=== PATIENT | female | born 1960 | race African-American/Black ===

== ENCOUNTER 2016-08-22 07:39 | Emergency (ER) | payer OTHER ==
[~2016-08-22] VITALS: Ht 167.6 cm; Wt 95.3 kg
[~2016-08-22 07:39] MED LIST: AMARYL4 M1 PO; CYMBALTA20 M1 PO; DIAZEPAM5 MG PO; DIFLUCAN150 MG PO; DIOVAN80 M1 PO; FLEXERIL 5MG TAB5 MG PO; GABAPENTIN300 MG PO; KEFLEX500 MG PO; LASIX20 MG PO; LEVEMIR FL100 UNIT/1 SC; LIPITOR10 M1 PO; LOTRIMIN CR1 %/30 GM TOP; METFORMIN HCL1000 M1 PO; MOTRIN 600 MG600 MG PO; MOTRIN800 MG PO; NOVOLOG FL100 UNIT/1 SC; NYSTOP100000 U/G TOP; PANTOPRAZOLE SO40 MG PO; PRILOSEC40 MG PO; PROTONIX 40MG T40 MG PO; TRAMADOL50 MG PO; VITAMIN D31000 UNI2 PO; VITAMIN D50000 IU PO; VOLTAREN GEL1% TOP
--- NOTE | 2016-08-22 08:05 | ED CARDIAC/CP/PALPITATIONS ---
History of Present Illness General Chief Complaint: Palpitations Stated Complaint: HEART PALPS Source: patient Exam Limitations: no limitations Vital Signs & Intake/Output Vital Signs & Intake/Output Vital Signs Date Time Temp Pulse Resp B/P Pulse O2 O2 Flow FiO2 Ox Delivery Rate 08/22 1351 98 18 125/72 97 Room Air 08/22 1132 98.6 08/22 1127 119 18 133/87 100 Room Air 08/22 0955 100.3 08/22 0907 100.3 120 16 134/83 97 Room Air 08/22 0836 98 Room Air 08/22 0749 97.0 158 18 116/76 100 Room Air Allergies Coded Allergies: insulin aspart (Mild, 10/11/15) Reconcile Medications Atorvastatin Calcium (Lipitor) 10 MG TABLET 1 TAB PO DAILY CHOLESTEROL ( Reported) Cholecalciferol (Vitamin D3) 1,000 UNIT TABLET 1,000 IU PO DAILY VITAMIN D SUPPLEMET (Reported) Clotrimazole (Lotrimin Cream 30GM) 1 %/30 GM CRM 1 FREEDOM TOP BID tinea infection apply to affected area(s) Diazepam 5 MG TABLET 0.25 TAB PO BIDP PRN ANXIETY (Reported) Diclofenac Sodium (Voltaren) 1 % GEL..GRAM. 1 GM TOP 4 TIMES/DAY PRN LEFT HEEL SPUR (Reported) apply to affected area(s) Duloxetine Hydrochloride (Cymbalta) 20 MG CAP 1 CAP PO DAILY MENTAL HEALTH ( Reported) Gabapentin 300 MG CAPSULE 2 CAP PO TID NEUROPATHY (Reported) Glimepiride 4 MG TABLET 1 TAB PO BID DIABETES (Reported) Insulin Aspart, Recombinant (Novolog Flexpen) 100 UNIT/ML INSULN.PEN DIABETES ( Reported) Insulin Detemir (Levemir Flextouch) 100 UNIT/ML (3 ML) INSULN.PEN 25 UNITS SC QPM DIABETES (Reported) METFORMIN HCL (Metformin) 1,000 MG TABLET 1 TAB PO BID DIABETES (Reported) Nystatin (Nystop) 100,000 UNIT/GRAM POWDER 1 FREEDOM TOP DAILY UNDER BREAST/BUTT CREASE (Reported) Pravastatin Sodium 20 MG TABLET 1 TAB PO DAILY CHOLESTEROL (Reported) Valsartan (Diovan) 80 MG TAB 1 TAB PO DAILY BP (Reported) Triage Note: PT STATES THAT MONDAY SHE WAS ILL WITH FLU LIKE SYMPTOMS, LAST PM SHE STARTED TO FEEL LIKE HER HEART WAS RACING, HR 158 AT TRIAGE. DENIES CP /SOB Triage Nurses Notes Reviewed? yes Onset: Gradual Duration: constant Timing: recent history Quality/Severity: moderate Radiation: no radiation Activities at Onset: none HPI: Patient is a 55-year-old female with past medical history type 1 diabetes, hypertension and hyperlipidemia who presents emergency and that over the weekend on Monday and Monday 3 days ago patient had on Monday 3 episodes of nonbloody nonbilious emesis that resolved then on Monday and Monday patient had loose watery stool diarrhea production and generalized weakness and fatigue however last night patient started to felt a gradual onset of shortness of breath associated with palpitations. Patient is able tolerate by mouth has tactile fevers Denies any headache neck pain neck stiffness chest pain arm pain jaw pain nausea vomiting abdominal plain leg swelling hemoptysis history of DVT or PE. Denies any cough Patient HAS generalized upper back pain since symptoms began (JULI GLOVER) Past History Travel History Traveled to [place] past 21 day No Medical History Any Pertinent Medical History? 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 FATHER (FATHER HAD ANEURYSM ). Hx Contributory? No (JULI GLOVER) Review of Systems Review of Systems Constitutional: Reports: see HPI, fever. EENTM: Reports: no symptoms. Respiratory: Reports: see HPI, short of breath. Denies: cough. Cardiovascular: Reports: see HPI. Denies: chest pain, peripheral edema. GI: Reports: see HPI, nausea. Denies: abdominal pain. Genitourinary: Reports: no symptoms. Musculoskeletal: Reports: see HPI, back pain. Skin: Reports: no symptoms. Neurological/Psychological: Reports: no symptoms. Hematologic/Endocrine: Reports: no symptoms. Immunologic/Allergic: Reports: no symptoms. All Other Systems: Reviewed and Negative (JULI GLOVER) Physical Exam Physical Exam General Appearance: no apparent distress, alert, comfortable Cardiovascular: tachycardia Comments: Well-developed well-nourished person in no acute distress HEENT: Normal EENT exam, extraocular motion intact, no nystagmus. Pupils equally round and reactive to light and accommodation. Nose is atraumatic. External auditory canal and Tympanic membranes clear. Pharynx normal. No swelling or edema. Neck: Supple, no lymphadenopathy, normal range of motion without pain or tenderness Back: Nontender, no CVA tenderness. Cardiovascular no murmurs rubs or gallops, normal JVP Respiratory: Chest nontender. No respiratory distress.breath sounds clear to auscultation bilaterally Abdomen: Soft, nontender nondistended, no appreciable organomegaly. Normal bowel sounds. No ascites Extremity: No edema, no calf tenderness to palpation, normal and equal pulses. Neuro: Alert oriented x3, motor sensory normal, Skin: No appreciable rash on exposed skin, skin is warm and dry. Psych: Mood and affect is normal, memory and judgment is normal. Core Measures ACS in differential dx? No Severe Sepsis Present: No Septic Shock Present: No (JULI GLOVER) Progress Differential Diagnosis: AMI, aortic dissection, atrial fibrillation, cholecystitis, CHF/pulm edema, costochondritis, hyperkalemia, hypovolemia, hyperthyroid, hyperventilation, intracranial hemorrhage, musculoskeletal pain, myocarditis, pancreatitis, pericarditis, pneumonia, pneumothorax, PSVT, pulmonary embolism, PUD/GERD, PVCs/PACs, respiratory failure, rib fracture, sepsis, unstable angina, V-fib/V-Tach, WPW syndrome Plan of Care: Orders Procedure Date/time Status Regular Diet 08/22 L Active Add-on Test (ER Only) 08/22 1200 Active THYROID STIMULATING HORMONE 08/22 0820 Complete THYROXINE 08/22 0820 Complete Telemetry/Utility Bill Complaints Investigator 08/22 0811 Active TROPONIN LEVEL 08/22 0809 Complete LIPASE 08/22 0809 Complete D-DIMER 08/22 0809 Complete COMPREHENSIVE METABOLIC PANEL 08/22 0809 Complete CBC WITHOUT DIFFERENTIAL 08/22 08 Complete AMYLASE 08/22 0809 Complete ACETONE 08/22 0809 Complete RAPID VIRAL INFLUENZA A 08/22 0805 Complete EKG 08/22 0740 Active Laboratory Tests 08/22/16 0820: Anion Gap 13, Estimated GFR > 60, BUN/Creatinine Ratio 20.0, Glucose 247 H, Calcium 9.8, Total Bilirubin 0.5, AST 17, ALT 23, Alkaline Phosphatase 139 H, Troponin I < 0.01, Total Protein 7.0, Albumin 3.7, Globulin 3.3, Albumin/ Globulin Ratio 1.1, Amylase 48, Lipase 81, TSH 10.200 H, Thyroxine (T4) 10.1, D -Dimer 306 H, CBC w Diff NO MAN DIFF REQ, RBC 4.53, MCV 88.7, MCH 29.2, RDW 13.1, MPV 8.6, Gran % 59.0, Lymphocytes % 30.0, Monocytes % 9.2, Eosinophils % 1.5, Basophils % 0.3, Absolute Granulocytes 2.9, Absolute Lymphocytes 1.5, Absolute Monocytes 0.5, Absolute Eosinophils 0.1, Absolute Basophils 0, PUBS MCHC 32.9 L, Acetone Level NEGATIVE Patient currently is in no apparent distress. Telemetry monitored noted to be sinus rhythm at approximately 115-125 bpm. Patient had initial blood work to known to be hyperglycemic troponin was negative EKG noted sinus tachycardia. Patient will receive CT angiogram to rule out pulmonary embolism. 08/22/2016 9:31:12 AM-I reviewed blood work with patient which she is in no apparent distress however will receive Tylenol for noted fever in the emergency room however due to history of present illness and exam findings I suspect that this time the patient patient have tachycardia from viral syndrome 08/22/2016 2:50:47 PM after multiple re-evaluations of the patient she had a negative CT angiogram and no concerns of pulmonary embolism patient had essentially unremarkable blood work however it was noted that patient did have tachycardia that was persistent however after IV fluids were administered patient did have a noted improvement of her heart rate to be 90 bpm. Patient did walk down the emergency room hallway normal steady gait and was asymptomatic Discussed patient with Dr. Huerta who agrees to have patient follow-up and outpatient and I strongly advised patient to call her adjunct latin professor, Dr. Huerta this week and water plant maintenance mechanic Dr. Lyons. Patient noted normal steady gait on discharge and was asymptomatic patient had nontender abdomen and I discussed CT scan results with patient noted thyroid nodule and gave copy TO the patient Discussed disposition plan with Dr. LOGAN who agrees (SAURABH GARCIA,JULI) Diagnostic Imaging: Viewed by Me: Radiology Read, CT Scan. Radiology Impression: no acute abnormality Initial ED EKG: SINUS RHYTHM 100 BPM Comments: PATIENT: SUBHA LOZADA PRESENT AGE: 55 PATIENT ACCOUNT NO: [id number] : 59 LOCATION: [facility] ORDERING PHYSICIAN: JULI GARCIA SERVICE DATE: 08/22/16 EXAM TYPE: CAT - CTA CHEST-PULMONARY EMBOLISM EXAMINATION: CT ANGIOGRAM OF THE CHEST WITH AND WITHOUT CONTRAST (CT PULMONARY ANGIOGRAM FOR PE) CLINICAL INFORMATION: Tachycardia and shortness of breath. COMPARISON: No pertinent prior studies are available for comparison. TECHNIQUE: Prior to contrast administration, noncontrast localization images were obtained. Subsequently, multidetector volumetric imaging was performed from the thoracic inlet to below the diaphragms following the administration of 67 mL Optiray 320 intravenous contrast. No contrast reaction reported Sagittal, coronal, and MIP oblique sagittal reformatted images were obtained on the CT workstation, uploaded to PACS, and reviewed. Total exam dose-length product 456 mGy-cm FINDINGS: QUALITY OF STUDY/CONTRAST BOLUS: Satisfactory. PULMONARY ARTERIES: The pulmonary arterial tree is well-opacified without pulmonary arterial defects are identified to suggest an underlying pulmonary embolism. THORACIC AORTA: No aneurysm or dissection. LUNG: No focal consolidation, nodules or masses. PLEURA: No pleural effusion or pneumothorax. MEDIASTINUM: Normal heart size. No pericardial effusion. No hilar or mediastinal lymphadenopathy. There is asymmetry involving the thyroid gland with a 1.5 cm nodule suspected in the midpole. CHEST WALL/AXILLA: No axillary or internal mammary lymphadenopathy. OSSEOUS STRUCTURES: No acute or suspicious osseous abnormality. UPPER ABDOMEN: Unremarkable. IMPRESSION: 1. No evidence of pulmonary embolism or an acute intrathoracic process. 2. Asymmetric prominence of the right thyroid lobe with questionable 1.5 cm nodule. Ultrasound is recommended to further evaluate. PATIENT: SUBHA LOZADA PRESENT AGE: 55 PATIENT ACCOUNT NO: [id number] : 59 LOCATION: ER ORDERING PHYSICIAN: JULI GARCIA SERVICE DATE: 08/22/16 EXAM TYPE: RAD - XRY-PORTABLE CHEST XRAY EXAMINATION: XR PORTABLE CHEST CLINICAL INFORMATION: Shortness of breath, palpitations. COMPARISON: 09/26/2012. TECHNIQUE: Portable AP view of the chest was obtained. FINDINGS: The cardiomediastinal silhouette is within normal limits. Lung volumes are diminished. The lungs and pleural spaces appear clear. There is no evidence of pneumothorax or pulmonary edema. Included osseous structures appear largely unremarkable. IMPRESSION: Low lung volumes, no evidence of an acute intrathoracic process. (JULI GLOVER) Departure Departure Disposition: HOME OR SELF CARE Condition: Stable Clinical Impression Primary Impression: Viral syndrome Secondary Impressions: Palpitations, Tachycardia Referrals: PATIENT HAS NO PRIMARY CARE DR (PCP/Family) Additional Instructions: As discussed tomorrow please follow-up and call your adjunct latin professor Dr. Huerta for further evaluation treatment. Begin DRINKING PLENTY OF water for hydration. Begin [id number] Tylenol for fevers. If symptoms worsen or if YOU develop a new concerning symptom return to emergency room. Tomorrow please follow up and establish a water plant maintenance mechanic Dr. Lyons for further evaluation treatment. Continue home medications as directed. Please discontinue your metformin for 2 days because you received IV contrast in the emergency room Departure Forms: Customer Survey General Discharge Information (JULI GLOVER) PA/HVAC/R INSTRUCTOR Co-Sign Statement Statement: ED Attending supervision documentation- [] I saw and evaluated the patient. I have also reviewed all the pertinent lab results and diagnostic results. I agree with the findings and the plan of care as documented in the PA's/HVAC/R INSTRUCTOR's documentation. [X] I have reviewed the ED Record and agree with the PA's/HVAC/R INSTRUCTOR's documentation. [] Additions or exceptions (if any) to the PAs/HVAC/R INSTRUCTOR's note and plan are summarized below: [] (JETT LOGAN DO) Critical Care Note Critical Care Note Critical Care Time: non-applicable (JULI GLOVER)
[2016-08-22 08:41] LABS: ABSOLUTE BASOPHIL COUNT 0 /CUMM (0.0-0.2); ABSOLUTE EOSINOPHIL COUNT 0.1 /CUMM (0.0-0.7); ABSOLUTE GRANULOCYTE CT 2.9 /CUMM (1.4-6.5); ABSOLUTE LYMPH COUNT 1.5 /CUMM (1.2-3.4); ABSOLUTE MONOCYTE COUNT 0.5 /CUMM (0.10-0.60); BASOPHIL % 0.3 % (0.0-2.0); EOSINOPHIL % 1.5 % (0-5); HEMATOCRIT 40.2 % (37-47); MEAN CORPUSCULAR HGB 29.2 PG (27.0-31.0); MEAN CORPUSCULAR HGB CONC 32.9 G/DL (33.0-37.0); MEAN CORPUSCULAR VOLUME 88.7 FL (81.0-99.0); MEAN PLATELET VOLUME 8.6 FL (7.4-10.4); PLATELET COUNT 297 /CUMM (130-400); RBC DISTRIBUTION WIDTH 13.1 % (11.5-14.5); RED BLOOD CELL CT 4.53 /CUMM (4.20-5.40)
--- NOTE | 2016-08-22 09:06 | RADIOLOGY REPORT ---
EXAMINATION: XR PORTABLE CHEST CLINICAL INFORMATION: Shortness of breath, palpitations. COMPARISON: 09/26/2012. TECHNIQUE: Portable AP view of the chest was obtained. FINDINGS: The cardiomediastinal silhouette is within normal limits. Lung volumes are diminished. The lungs and pleural spaces appear clear. There is no evidence of pneumothorax or pulmonary edema. Included osseous structures appear largely unremarkable. IMPRESSION: Low lung volumes, no evidence of an acute intrathoracic process.
[2016-08-22] MEDS ORDERED: PRAVASTATIN SOD20 M2 PO (09:53)
[2016-08-22] MEDS ORDERED: GABAPENTIN300 M2 PO (09:55)
[2016-08-22] MEDS ORDERED: DIAZEPAM5 M1 PO (09:55)
--- NOTE | 2016-08-22 11:21 | CT SCAN REPORT ---
EXAMINATION: CT ANGIOGRAM OF THE CHEST WITH AND WITHOUT CONTRAST (CT PULMONARY ANGIOGRAM FOR PE) CLINICAL INFORMATION: Tachycardia and shortness of breath. COMPARISON: No pertinent prior studies are available for comparison. TECHNIQUE: Prior to contrast administration, noncontrast localization images were obtained. Subsequently, multidetector volumetric imaging was performed from the thoracic inlet to below the diaphragms following the administration of 67 mL Optiray 320 intravenous contrast. No contrast reaction reported Sagittal, coronal, and MIP oblique sagittal reformatted images were obtained on the CT workstation, uploaded to PACS, and reviewed. Total exam dose-length product 456 mGy-cm FINDINGS: QUALITY OF STUDY/CONTRAST BOLUS: Satisfactory. PULMONARY ARTERIES: The pulmonary arterial tree is well-opacified without pulmonary arterial defects are identified to suggest an underlying pulmonary embolism. THORACIC AORTA: No aneurysm or dissection. LUNG: No focal consolidation, nodules or masses. PLEURA: No pleural effusion or pneumothorax. MEDIASTINUM: Normal heart size. No pericardial effusion. No hilar or mediastinal lymphadenopathy. There is asymmetry involving the thyroid gland with a 1.5 cm nodule suspected in the midpole. CHEST WALL/AXILLA: No axillary or internal mammary lymphadenopathy. OSSEOUS STRUCTURES: No acute or suspicious osseous abnormality. UPPER ABDOMEN: Unremarkable. IMPRESSION: 1. No evidence of pulmonary embolism or an acute intrathoracic process. 2. Asymmetric prominence of the right thyroid lobe with questionable 1.5 cm nodule. Ultrasound is recommended to further evaluate.
[2016-08-22 13:51] VITALS: BP 125/72
== END 2016-08-22 15:16 ==
LOC: ERH 07:39
PROVIDERS: Physician Assistant
DX: R00.2 Palpitations (principal); B34.9 Viral infection, unspecified; R00.0 Tachycardia, unspecified
CPT/HCPCS: 87804; 87804-59; 93005; 93010; 96360

== ENCOUNTER 2016-10-26 11:14 | Emergency (ER) | payer OTHER ==
[~2016-10-26] VITALS: Ht 167.6 cm; Wt 97.5 kg
[~2016-10-26 11:14] MED LIST changes: +DIAZEPAM5 M1 PO; +GABAPENTIN300 M2 PO; +PRAVASTATIN SOD20 M2 PO
[2016-10-26 11:21] VITALS: BP 131/82
--- NOTE | 2016-10-26 11:50 | ED INFLUENZA/URI COMPLAINT ---
History of Present Illness General Chief Complaint: Upper Respiratory Sx/Fever Stated Complaint: FEVER, BODY ACHE, SORE THROAT Source: patient, old records Exam Limitations: no limitations Vital Signs & Intake/Output Vital Signs & Intake/Output Vital Signs Date Time Temp Pulse Resp B/P Pulse O2 O2 Flow FiO2 Ox Delivery Rate 10/26 1121 96.1 116 20 131/82 98 Room Air Allergies Coded Allergies: insulin aspart (Mild, 10/11/15) Reconcile Medications Albuterol Sulfate (Proventil Hfa) 90 MCG HFA.AER.AD 2 PUF INH Q4 sob Atorvastatin Calcium (Lipitor) 10 MG TABLET 1 TAB PO DAILY CHOLESTEROL ( Reported) Brompheniramine/Pseudoephed/Dm (Bromfed Dm Cough Syrup) 2 MG-30 MG-10 MG/5 ML SYRUP 5-10 ML PO Q4-6 PRN PRN cough Cholecalciferol (Vitamin D3) 1,000 UNIT TABLET 1,000 IU PO DAILY VITAMIN D SUPPLEMET (Reported) Clotrimazole (Lotrimin Cream 30GM) 1 %/30 GM CRM 1 FREEDOM TOP BID tinea infection apply to affected area(s) Diazepam 5 MG TABLET 0.25 TAB PO BIDP PRN ANXIETY (Reported) Diclofenac Sodium (Voltaren) 1 % GEL..GRAM. 1 GM TOP 4 TIMES/DAY PRN LEFT HEEL SPUR (Reported) apply to affected area(s) Doxycycline Hyclate 100 MG TABLET 1 TAB PO BID sinusitis Duloxetine Hydrochloride (Cymbalta) 20 MG CAP 1 CAP PO DAILY MENTAL HEALTH ( Reported) Gabapentin 300 MG CAPSULE 2 CAP PO TID NEUROPATHY (Reported) Glimepiride 4 MG TABLET 1 TAB PO BID DIABETES (Reported) Insulin Aspart, Recombinant (Novolog Flexpen) 100 UNIT/ML INSULN.PEN DIABETES ( Reported) Insulin Detemir (Levemir Flextouch) 100 UNIT/ML (3 ML) INSULN.PEN 25 UNITS SC QPM DIABETES (Reported) METFORMIN HCL (Metformin) 1,000 MG TABLET 1 TAB PO BID DIABETES (Reported) Nystatin (Nystop) 100,000 UNIT/GRAM POWDER 1 FREEDOM TOP DAILY UNDER BREAST/BUTT CREASE (Reported) Pravastatin Sodium 20 MG TABLET 1 TAB PO DAILY CHOLESTEROL (Reported) Valsartan (Diovan) 80 MG TAB 1 TAB PO DAILY BP (Reported) Triage Note: PT TO ED C/O BODY ACHES SINCE MONDAY. C/O DIARRHEA, DENIES N/V. DENIES FEVERS AT HOME, AFEBRILE NOW. Triage Nurses Notes Reviewed? yes Onset: Abrupt Duration: day(s): (4-5), constant Timing: recent history Severity: mild, moderate No Modifying Factors: none HPI: 56-year-old female comes into emergency room with complaints of cough, mucus production, fever or chills, bodyaches, sinus tenderness. Symptoms of a going on for the past 4-5 days. Couple episodes of associated diarrhea. was sick with similar symptoms. Denies any other associated symptoms at this time. (NELLI ALMAGUER) Past History Travel History Traveled to [place] past 21 day No Medical History Any Pertinent Medical History? 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 FATHER (FATHER HAD ANEURYSM ). Hx Contributory? No (NELLI ALMAGUER) Review of Systems Review of Systems Constitutional: Reports: see HPI. EENTM: Reports: see HPI. Respiratory: Reports: see HPI. Cardiovascular: Reports: no symptoms. GI: Reports: see HPI. Genitourinary: Reports: no symptoms. Musculoskeletal: Reports: no symptoms. Skin: Reports: no symptoms. Neurological/Psychological: Reports: no symptoms. Hematologic/Endocrine: Reports: no symptoms. Immunologic/Allergic: Reports: no symptoms. All Other Systems: Reviewed and Negative (NELLI ALMAGUER) Physical Exam Physical Exam General Appearance: well developed/nourished, no apparent distress, alert Head: atraumatic, normal appearance Eyes: Bilateral: normal appearance. Ears, Nose, Throat: normal ENT inspection, moist mucous membrane, hearing grossly normal, Tympanic normal Neck: normal inspection, full range of motion Respiratory: normal breath sounds, no respiratory distress Cardiovascular: regular rate/rhythm Gastrointestinal: soft Back: normal inspection Extremities: normal inspection, normal range of motion, no edema Neurologic/Psych: awake, alert, oriented x 3, normal gait, normal mood/affect Skin: intact, normal color Core Measures Severe Sepsis Present: No Septic Shock Present: No (NELLI ALMAGUER) Progress Differential Diagnosis: influenza, meningitis, neutropenia, otitis, pneumonia, pharyngitis, sinusitis Plan of Care: Orders Procedure Date/time Status RAPID VIRAL INFLUENZA A 10/26 1120 Complete Microbiology 10/26 1126 NASOPHARYN: Influenza Virus A & B Rapid Smear - COMP Diagnostic Imaging: Viewed by Me: Radiology Read. Discussed w/RAD: Radiology Read. Radiology Impression: SERVICE DATE: 10/26/16 EXAM TYPE: RAD - XRY-CHEST XRAY, PA AND LATERAL EXAMINATION: XR CHEST CLINICAL INFORMATION: Cough. Evaluate for pneumonia. COMPARISON: 08/22/2016 TECHNIQUE: 2 views of the chest were obtained. FINDINGS: Lungs are symmetrically expanded and clear. No focal consolidation, interstitial infiltrate or pleural effusion. Cardiac silhouette is normal in size. The mediastinal and hilar contours are normal. Multilevel degenerative disc space narrowing of the thoracic spine. IMPRESSION: No evidence of pneumonia; no acute cardiopulmonary abnormality compared to 08/22/2016. DICTATED BY: JARETT JEAN MD DATE/TIME DICTATED:10/26/161220 VOLLEYBALL REFEREE:CALEB DATE/TIME TRANSCRIBED:10/26/161220 Initial ED EKG: none (NELLI ALMAGUER) Departure Departure Disposition: HOME OR SELF CARE Condition: Stable Clinical Impression Primary Impression: URI (upper respiratory infection) Referrals: LUCAS RAMON MD (PCP/Family) Additional Instructions: Take doxycycline, Bromfed, and albuterol as prescribed. Follow-up with primary care doctor. Return if any other concerns. Please go over all results of today's visit with your primary care doctor. Contact your primary care doctor to let them know you were here in the emergency room. There may be nonspecific findings which may not be related to your visit today here in the emergency room but may require further evaluation and chronic monitoring by your primary care doctor. If you had a laceration today the chance of foreign body always remains. You should follow-up with your primary care doctor for recheck in 3-5 days for a wound check. If you had an x-ray done there is a chance that a fracture could have been missed on initial read and you should follow-up with your primary care doctor for repeat x-rays if symptoms persist. If your blood pressure was elevated here in the emergency room please have rechecked by her primary care doctor within the next 48 hours by your primary care doctor. If you were prescribed a narcotic here in the emergency room or any type of controlled substances you're not allowed to drive while taking this medication or operate any type of heavy machinery. Narcotics can make you feel lightheaded dizziness nausea and can cause constipation. You may need to package pick up a stool softener. Thank you for choosing [facility] emergency room. Please return to the emergency room immediately if you have any other concerns worsening of symptoms. Departure Forms: Customer Survey General Discharge Information Prescriptions: Current Visit Scripts Doxycycline Hyclate 1 TAB PO BID #14 TAB Brompheniramine/Pseudoephed/Dm (Bromfed Dm Cough Syrup) 5-10 ML PO Q4-6 PRN PRN cough #120 ML Albuterol Sulfate (Proventil Hfa) 2 PUF INH Q4 #1 INHAL Comments 10/26/2016 12:55:47 PM Patient clinically looks well. Nontoxic-appearing. In no apparent distress. Follow-up with primary care doctor. Patient does not sound tachycardic while listening on exam. Symptoms are very consistent with viral illness. Return if any other concerns. Patient understands and agrees with plan of care. (CLARI GARCIA,NELLI) PA/MUFFLE WORKER Co-Sign Statement Statement: ED Attending supervision documentation- [] I saw and evaluated the patient. I have also reviewed all the pertinent lab results and diagnostic results. I agree with the findings and the plan of care as documented in the PA's/MUFFLE WORKER's documentation. x I have reviewed the ED Record and agree with the PA's/MUFFLE WORKER's documentation. [] Additions or exceptions (if any) to the PAs/MUFFLE WORKER's note and plan are summarized below: [] (JAYCEE STRINGER,CHANCE)
--- NOTE | 2016-10-26 12:26 | RADIOLOGY REPORT ---
EXAMINATION: XR CHEST CLINICAL INFORMATION: Cough. Evaluate for pneumonia. COMPARISON: 08/22/2016 TECHNIQUE: 2 views of the chest were obtained. FINDINGS: Lungs are symmetrically expanded and clear. No focal consolidation, interstitial infiltrate or pleural effusion. Cardiac silhouette is normal in size. The mediastinal and hilar contours are normal. Multilevel degenerative disc space narrowing of the thoracic spine. IMPRESSION: No evidence of pneumonia; no acute cardiopulmonary abnormality compared to 08/22/2016.
[2016-10-26] MEDS ORDERED: BROMFED DM COU118 M1 PO (12:41)
[2016-10-26] MEDS ORDERED: DOXYCYCLINE HY100 M4 PO (12:41)
[2016-10-26] MEDS ORDERED: PROVENTIL HFA6.7 GM INH (12:41)
== END 2016-10-26 12:51 ==
LOC: ERH 11:14
DX: J06.9 Acute upper respiratory infection, unspecified (principal)
CPT/HCPCS: 87804; 87804-59

== ENCOUNTER 2016-11-15 12:03 | Emergency (ER) | payer OTHER ==
[~2016-11-15] VITALS: Ht 167.6 cm; Wt 95.3 kg
[~2016-11-15 12:03] MED LIST changes: +BROMFED DM COU118 M1 PO; +DOXYCYCLINE HY100 M4 PO; +PROVENTIL HFA6.7 GM INH
[2016-11-15 12:07] VITALS: BP 142/90
--- NOTE | 2016-11-15 12:56 | ED THROAT/DENTAL COMPLAINT ---
History of Present Illness General Chief Complaint: Sore Throat, Dental Pain Stated Complaint: SORE THROAT Source: patient Exam Limitations: no limitations Vital Signs & Intake/Output Vital Signs & Intake/Output Vital Signs Date Time Temp Pulse Resp B/P B/P Pulse O2 O2 Flow FiO2 Mean Ox Delivery Rate 11/15 1207 97.3 78 20 142/90 98 Room Air Allergies Coded Allergies: insulin aspart (Mild, 10/11/15) Reconcile Medications Albuterol Sulfate (Proventil Hfa) 90 MCG HFA.AER.AD 2 PUF INH Q4 sob Atorvastatin Calcium (Lipitor) 10 MG TABLET 1 TAB PO DAILY CHOLESTEROL ( Reported) Cholecalciferol (Vitamin D3) 1,000 UNIT TABLET 1 TAB PO DAILY SUPPLEMENT ( Reported) Diazepam 5 MG TABLET 0.25 TAB PO BIDP PRN ANXIETY (Reported) Duloxetine Hydrochloride (Cymbalta) 20 MG CAPSULE.DR 1 CAP PO DAILY MENTAL HEALTH (Reported) Gabapentin 300 MG CAPSULE 2 CAP PO TID NEUROPATHY (Reported) Glimepiride (Amaryl) 4 MG TABLET 1 TAB PO BID DIABETES (Reported) Ibuprofen 600 MG TABLET 1 TAB PO TID pain with food Insulin Aspart, Recombinant (Novolog Flexpen) (Unknown Strength) INSULN.PEN ( Unknown Dose) SC SEE SLIDING SCALE DM (Reported) Insulin Detemir (Levemir Flextouch) 100 UNIT/ML (3 ML) INSULN.PEN 25 U SC QPM DIABETES (Reported) Metformin HCl 1,000 MG TABLET 1 TAB PO BID DIABETES (Reported) Pravastatin Sodium 20 MG TABLET 1 TAB PO DAILY CHOLESTEROL (Reported) Valsartan (Diovan) 80 MG TABLET 1 TAB PO DAILY BP (Reported) Triage Note: PT TO ED C/O SORE THROAT SINCE WAKING THIS AM. STATES GRAND DAUGHTER HAD STREP LAST WEEK. Triage Nurses Notes Reviewed? yes Onset: Abrupt Duration: day(s): (few), constant, continues in ED Timing: recent history Injury Environment: home No Modifying Factors: none HPI: 56-year-old female comes into emergency room for further evaluation of sore throat for the past few days. Symptoms in the going on for the past few days. Patient reports is difficult to clear mucus. Denies any fever or vomiting. Denies any sinus pressure. Patient was seen here recently for upper her story symptoms. Denies any other associated symptoms. Past History Travel History Traveled to [place] past 21 day No Medical History Any Pertinent Medical History? 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 FATHER (FATHER HAD ANEURYSM ). Hx Contributory? No Review of Systems Review of Systems Constitutional: Reports: see HPI. EENTM: Reports: see HPI. Respiratory: Reports: no symptoms. Cardiovascular: Reports: no symptoms. GI: Reports: no symptoms. Genitourinary: Reports: no symptoms. Musculoskeletal: Reports: no symptoms. Skin: Reports: no symptoms. Neurological/Psychological: Reports: no symptoms. Hematologic/Endocrine: Reports: no symptoms. Immunologic/Allergic: Reports: no symptoms. All Other Systems: Reviewed and Negative Physical Exam Physical Exam General Appearance: well developed/nourished, no apparent distress, alert Head: atraumatic, normal appearance Eyes: Bilateral: normal appearance. Nose: normal inspection Mouth/Throat: pharyngeal erythema Neck: normal inspection, supple, full range of motion Cardiovascular/Respiratory: normal breath sounds, regular rate/rhythm, no respiratory distress Back: normal inspection Neurologic/Psych: awake, alert, oriented x 3, normal gait Skin: intact, normal color Core Measures ACS in differential dx? No Severe Sepsis Present: No Septic Shock Present: No Progress Differential Diagnosis: aspirated tooth, carious tooth, epiglottitis, Ludwigs angina, meningitis, odontogenic abscess, mikayla-tonsillar abscess, pharyngeal for. body, stomatitis/gingivitis, strep pharyngitis, tooth fracture, upper respiratory infection Plan of Care: Orders Procedure Date/time Status THROAT CULTURE W/QUICK STREP 11/15 1210 Active Comments: 11/15/2016 1:25:19 PM Patient clinically looks well. Nontoxic-appearing. In no apparent distress. Negative strep. No need for antibiotics. Follow-up with primary care doctor. Symptoms more viral in nature. Departure Departure Disposition: HOME OR SELF CARE Condition: Stable Clinical Impression Primary Impression: Upper respiratory infection Referrals: LUCAS RAMON MD (PCP/Family) Additional Instructions: agronomy supervisor Mucinex D. Take ibuprofen as prescribed. Gargle with warm salt water. Return if any other concerns. Follow-up with your primary care doctor. Please go over all results of today's visit with your primary care doctor. Contact your primary care doctor to let them know you were here in the emergency room. There may be nonspecific findings which may not be related to your visit today here in the emergency room but may require further evaluation and chronic monitoring by your primary care doctor. If you had a laceration today the chance of foreign body always remains. You should follow-up with your primary care doctor for recheck in 3-5 days for a wound check. If you had an x-ray done there is a chance that a fracture could have been missed on initial read and you should follow-up with your primary care doctor for repeat x-rays if symptoms persist. If your blood pressure was elevated here in the emergency room please have rechecked by her primary care doctor within the next 48 hours by your primary care doctor. If you were prescribed a narcotic here in the emergency room or any type of controlled substances you're not allowed to drive while taking this medication or operate any type of heavy machinery. Narcotics can make you feel lightheaded dizziness nausea and can cause constipation. You may need to cotton picker a stool softener. Thank you for choosing [facility] emergency room. Please return to the emergency room immediately if you have any other concerns worsening of symptoms. Departure Forms: Customer Survey General Discharge Information Prescriptions: Current Visit Scripts Ibuprofen 1 TAB PO TID #15 TAB with food
[2016-11-15] MEDS ORDERED: IBUPROFEN600 M1 PO (12:57)
== END 2016-11-15 13:27 ==
LOC: ERH 12:03
DX: J06.9 Acute upper respiratory infection, unspecified (principal)

== ENCOUNTER 2017-10-27 07:45 | Emergency (ER) | payer OTHER ==
[~2017-10-27 07:45] MED LIST changes: +AUGMENTIN 500-1 EACH PO; +BACTROBAN15 GM TOP; +CIPRODEX OTIC7.5 ML OT; +DIFLUCAN150 M1 PO; +IBUPROFEN600 M1 PO; +LORADAMED10 MG PO; +MOBIC15 M1 PO; +PROAIR HFA8.5 GM INH; +VITAMIN D2000 UNI1 PO
--- NOTE | 2017-10-27 08:18 | ED CARDIAC/CP/PALPITATIONS ---
History of Present Illness General Chief Complaint: Chest Pain Stated Complaint: CHEST PAIN/DISCOMFORT,PAIN IN RIGHT LEG Source: patient, old records Exam Limitations: no limitations Vital Signs & Intake/Output Vital Signs & Intake/Output Vital Signs Date Time Temp Pulse Resp B/P B/P Pulse O2 O2 Flow FiO2 Mean Ox Delivery Rate 10/27 1456 97.9 84 18 148/70 99 Room Air 10/27 1152 86 18 135/78 100 10/27 0931 98.8 118 20 161/92 100 10/27 0809 100 Room Air 10/27 0802 98.1 120 16 168/100 100 Room Air Allergies Coded Allergies: insulin aspart (Severe, HIVES 06/09/17) Reconcile Medications Albuterol Sulfate (Proair Hfa) 90 MCG HFA.AER.AD 2 PUF INH PRN RESP. ( Reported) Cholecalciferol (Vitamin D3) (Vitamin D) 2,000 UNIT TABLET 1 TAB PO DAILY SUPPLEMENT (Reported) Duloxetine Hydrochloride (Cymbalta) 20 MG CAPSULE.DR 1 CAP PO DAILY MENTAL HEALTH (Reported) Gabapentin 300 MG CAPSULE 2 CAP PO TID NEUROPATHY (Reported) Insulin Aspart (Novolog) (Unknown Strength) CARTRIDGE (Unknown Dose) SC DAILY DIABETES (Reported) Loratadine (Loradamed) 10 MG TABLET 1 TAB PO DAILY HIVES FROM INSULIN ( Reported) Metformin HCl 1,000 MG TABLET 1 TAB PO BID DIABETES (Reported) Oxycodone HCl/Acetaminophen (Percocet 5-325 MG Tablet) 5 MG-325 MG TABLET 1 TAB PO BID PRN pain Pravastatin Sodium 20 MG TABLET 1 TAB PO DAILY CHOLESTEROL (Reported) Valsartan (Diovan) 80 MG TABLET 1 TAB PO DAILY BP (Reported) Triage Note: PT TO ED C/O CHEST DISCOMFORT SINCE MONDAY FOR A FEW HOURS IN THE CENTER OF HER CHEST THAT FELT ACHY AND THEN WENT AWAY. PT REPORTS THAT THE PAIN CAME BACK LAST NIGHT AND FELT A STRANGE FEELING TO HER CHEST ALMOST LIKE PALPITATIONS THAT PERSISTED ALL NIGHT LONG AND STILL FEELS LIKE IT IS GOING ON NOW. CURRENTLY PT HAS NO PAINS IN HER CHEST. CURRENT HR ON CM IS 120. DENIES ANY DIFFICULTY BREATHING. Triage Nurses Notes Reviewed? yes Onset: Abrupt Duration: minute(s):, constant, continues in ED, waxing and waning Quality/Severity: RAPID HEART RATE Location: substernal Radiation: no radiation Activities at Onset: rest HPI: Patient presents for evaluation of heart palpitations that began upon awakening this morning. Patient states that she first began experiencing symptoms on Monday at which point she had a two-hour episode of chest discomfort substernally. The discomfort felt like a sharp achy pain. That resolved. She began having heart palpitations last night consisting of a rapid heart rate. Symptoms continue this morning and have been constant since onset yesterday. Patient denies any associated dyspnea or chest pain (patient has repeatedly denied any unusual sensation pain or discomfort in her chest aside from the palpitations). She has just had an insulin pump placed for her insulin- dependent diabetes. In addition to the above she is also experiencing a diffuse right leg pain and was evaluated for leg pains recently in the emergency department with an unremarkable workup. 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 Past History Travel History Traveled to [place] past 21 day No Medical History Any Pertinent Medical History? see below for history Neurological: SICK PERSON SYNDROME EENT: NONE Cardiovascular: hypertension, hyperlipidemia Respiratory: NONE Gastrointestinal: GERD Hepatic: NONE Renal: NONE Musculoskeletal: falls, HX OSTEOMYELITIS R FOOT BONE SPURT TO L HEEL BONE STIFF MAN SYNDROME Psychiatric: NONE Endocrine: diabetes Blood Disorders: NONE Cancer(s): NONE PARK NATURALIST/Reproductive: NONE Other Medical Hx: Type 1 diabetes mellitus Strube heel spur History of MRSA: No History of VRE: No History of CDIFF: No Tetanus Vaccine: 05/26/13 Surgical History Surgical History: , hysterectomy Psychosocial History Who do you live with Spouse Services at Home None What is your primary language Icelandic Tobacco Use: Never used Family History Family History, If Any: MOTHER (MOTHER HAD COLON CANCER). FATHER (FATHER HAD ANEURYSM ). Hx Contributory? No Review of Systems Review of Systems Constitutional: Reports: no symptoms. EENTM: Reports: no symptoms. Respiratory: Reports: no symptoms. Cardiovascular: Reports: see HPI. GI: Reports: no symptoms. Genitourinary: Reports: no symptoms. Musculoskeletal: Reports: no symptoms. Skin: Reports: no symptoms. Neurological/Psychological: Reports: no symptoms. Hematologic/Endocrine: Reports: no symptoms. Immunologic/Allergic: Reports: no symptoms. All Other Systems: Reviewed and Negative Physical Exam Physical Exam Cardiovascular: SEE BELOW Comments: Gen.: Well-nourished, well-developed, no acute respiratory distress. Head: Normocephalic, atraumatic. Eyes: Normal inspection bilaterally Ears: Normal inspection bilaterally Nose: Normal inspection Throat/mouth : Moist mucosa Neck: Supple, full range of motion, no goiter Heart: Regular rate and rhythm, no murmurs rubs or gallops Lungs: Clear to auscultation bilaterally with normal air entry Chest: Nontender Back: Normal range of motion Abdomen: Soft, nontender, nondistended, normal bowel sounds Extremities: Normal range of motion grossly, equal radial pulses, no cyanosis clubbing or edema Neurologic: Cranial nerves grossly intact, speech is clear Skin: warm and dry Psychiatric: Calm, cooperative, no apparent delusions or hallucinations Core Measures ACS in differential dx? No CVA/TIA Diagnosis No Sepsis Present: No Sepsis Focused Exam Completed? No Progress Differential Diagnosis: hyperkalemia, hypovolemia Plan of Care: Orders Procedure Date/time Status Consistent Carbohydrate 1 10/27 D Active TROPONIN LEVEL 10/27 1148 Active TROPONIN LEVEL 10/27 1138 Complete FingerStick- Glucose 10/27 1047 Active EKG 10/27 1045 Active Telemetry/Broomcorn Scraper 10/27 0813 Active THYROID STIMULATING HORMONE 10/27 0813 Complete TROPONIN LEVEL 10/27 0813 Complete MAGNESIUM 10/27 0813 Complete CBC WITHOUT DIFFERENTIAL 10/27 0813 Complete CALCIUM 10/27 0813 Complete BASIC METABOLIC PANEL 10/27 0813 Complete EKG 10/27 0747 Active Laboratory Tests 10/27/17 1151: Troponin I 0.02 10/27/17 0820: Anion Gap 10, Estimated GFR > 60, BUN/Creatinine Ratio 23.3, Glucose 402 H, Calcium 9.8, Magnesium 1.5 L, Troponin I 0.02, TSH 6.240 H, CBC w Diff NO MAN DIFF REQ, RBC 4.11 L, MCV 90.6, MCH 29.8, MCHC 32.9 L, RDW 13.5, MPV 8.4, Gran % 67.3, Lymphocytes % 23.6, Monocytes % 7.5, Eosinophils % 1.1, Basophils % 0.5, Absolute Granulocytes 4.4, Absolute Lymphocytes 1.5, Absolute Monocytes 0.5, Absolute Eosinophils 0.1, Absolute Basophils 0 Diagnostic Imaging: Discussed w/RAD: Radiology Read, Ultrasound. Radiology Impression: PATIENT: SUBHA LOZADA PRESENT AGE: 57 PATIENT ACCOUNT NO: [id number] : 58 LOCATION: ER ORDERING PHYSICIAN: Jean-Paul Montenegro MD SERVICE DATE: 10/27/17 EXAM TYPE : US - US-UNILATERAL VENOUS DOPPLER EXAMINATION: US TRIPLEX LOWER EXTREMITY, RIGHT CLINICAL INFORMATION: This is a 57-year-old female with right lower 70 pain. Possible deep vein thrombosis. COMPARISON: None TECHNIQUE: Color-flow triplex imaging with spectral analysis and compression Doppler were performed on the lower extremity. FINDINGS: Respiratory variation, normal compression and augmented flow are noted throughout the lower extremity. The visualized common femoral vein, superficial femoral vein, profunda femoral vein, popliteal vein and midcalf peroneal and posterior tibial venous segments show no evidence of deep venous thrombosis. There is no Kaur's cyst. IMPRESSION: Normal triplex scan without evidence of deep venous thrombosis involving the lower extremity. DICTATED BY: Jaskaran Keenan MD DATE/TIME DICTATED:10/27/171254 DIAMOND SIZER AND GRADER:ESTRADA DATE/TIME TRANSCRIBED:10/27/171254 CONFIDENTIAL, DO NOT COPY WITHOUT APPROPRIATE AUTHORIZATION. <Electronically signed in Other Vendor System> SIGNED BY: Jaskaran Keenan MD 10/27/171258 CXR Impression: PATIENT: SUBHA LOZADA PRESENT AGE: 57 PATIENT ACCOUNT NO: [id number] : 58 LOCATION: [facility] ORDERING PHYSICIAN: Jean-Paul Montenegro MD SERVICE DATE: 10/27/17 EXAM TYPE : RAD - XRY-PORTABLE CHEST XRAY EXAMINATION: XR PORTABLE CHEST CLINICAL INFORMATION: Palpitations COMPARISON: 03/22/2017 TECHNIQUE: Portable frontal view of the chest was obtained. FINDINGS: The lungs are mildly hypoinflated and appear clear without focal consolidation. No evidence of pneumothorax, pleural effusion, or pulmonary edema. The cardiomediastinal contour is unremarkable. No acute osseous findings are seen. IMPRESSION: No acute cardiopulmonary findings. DICTATED BY: Yogi Pate MD DATE/TIME DICTATED:10/27/17839 DIAMOND SIZER AND GRADER:CALEB DATE/TIME TRANSCRIBED:10/27/17839 CONFIDENTIAL, DO NOT COPY WITHOUT APPROPRIATE AUTHORIZATION. <Electronically signed in Other Vendor System> SIGNED BY: Yogi Pate MD 04/06/18 0845 Initial ED EKG: NSR, rate (119), QUESTIONABLE st SEGMENT ELEVATIONS IN THE INFERIOR LEADS AND LATERALLY. tHESE ARE NEW COMPARED WITH AN ekg FROM 2016 (HEART RATE NORMAL ON PRIOR). Comments: Patient has repeatedly denied chest discomfort or chest pain. I feel this makes ST segment elevation MO unlikely despite her history of diabetes. Since the patient states that her blood glucose levels have been fluctuating I will bolus with IV fluids and repeat EKG WHEN heart rate is improved. 10/27/2017 10:47:05 AM patient's heart rate is now in the upper 80s. Repeat EKG has been ordered. 10/27/2017 11:48:24 AM repeat EKG shows no ST segment elevations inferolaterally. Repeat troponin ordered. 10/27/2017 3:37:07 PM repeat troponin is normal. Patient found sleeping upon my return to the room. I have updated Subha on test results and she is eager to go home. Departure Departure Disposition: HOME OR SELF CARE Condition: Stable Clinical Impression Primary Impression: Dehydration Secondary Impressions: Heart palpitations Referrals: Luis Alberto Dumont MD (PCP/Family) Additional Instructions: Maintained a good fluid intake. Monitor blood sugar levels before each meal and at bedtime and record these for review by your high speed operator. Strict diabetic diet. Follow-up with your high speed operator on Monday. Notify your primary care doctor this emergency department visit and treatment plan. Return if any concerns or sudden worsening. Please note that there might be incidental findings in your evaluation that are unrelated to the current emergency department visit. Please notify your primary care doctor about this emergency department visit in order to obtain and review all of the testing performed so that these incidental findings can be monitored as needed. If you had an x-ray performed, please understand that some fractures may not be seen on the initial set of x-rays. If your symptoms persist you might need a repeat set of x-rays to check for such a fracture. If you had a laceration evaluated, please understand that foreign bodies such as glass or wood may not be visible to the naked eye or on plain x-rays. If the wound becomes red, swollen, increasingly more painful or if there is any drainage from the wound, please have it reevaluated by a physician for the possibility of a retained foreign body. If you're unable to follow up as outlined in the discharge instructions please return to the emergency department. Thank you for choosing the [facility] Emergency Department for your care. It was a pleasure to serve you today. Jean-Paul Montenegro M.D. [facility] Departure Forms: Customer Survey General Discharge Information Critical Care Note Critical Care Note Critical Care Time: 30-74 min ED Attending Observation Initial Observation Note: I have seen and personally examined SUBHA LOZADA on 10/27/17 at 1047. I agree with the current emergency department documentation. The disposition (admission or discharge) is uncertain at this time, she needs a period of observation for the following reason(s): The ED Nurse caring for this patient has been personally informed as to what the patient is being observed for.
[2017-10-27 08:35] LABS: ABSOLUTE BASOPHIL COUNT 0 /CUMM (0.0-0.2); ABSOLUTE EOSINOPHIL COUNT 0.1 /CUMM (0.0-0.7); ABSOLUTE GRANULOCYTE CT 4.4 /CUMM (1.4-6.5); ABSOLUTE LYMPH COUNT 1.5 /CUMM (1.2-3.4); ABSOLUTE MONOCYTE COUNT 0.5 /CUMM (0.10-0.60); BASOPHIL % 0.5 % (0.0-2.0); EOSINOPHIL % 1.1 % (0-5); GRANULOCYTE % 67.3 % (42.2-75.2); HEMATOCRIT 37.3 % (37-47); MEAN CORPUSCULAR HGB 29.8 PG (27.0-31.0); MEAN CORPUSCULAR HGB CONC 32.9 G/DL (33.0-37.0); MEAN CORPUSCULAR VOLUME 90.6 FL (81.0-99.0); MEAN PLATELET VOLUME 8.4 FL (7.4-10.4); PLATELET COUNT 326 /CUMM (130-400); RBC DISTRIBUTION WIDTH 13.5 % (11.5-14.5); RED BLOOD CELL CT 4.11 /CUMM (4.20-5.40); WHITE BLOOD CELL COUNT 6.6 /CUMM (4.8-10.8)
--- NOTE | 2017-10-27 08:45 | RADIOLOGY REPORT ---
EXAMINATION: XR PORTABLE CHEST CLINICAL INFORMATION: Palpitations COMPARISON: 03/22/2017 TECHNIQUE: Portable frontal view of the chest was obtained. FINDINGS: The lungs are mildly hypoinflated and appear clear without focal consolidation. No evidence of pneumothorax, pleural effusion, or pulmonary edema. The cardiomediastinal contour is unremarkable. No acute osseous findings are seen. IMPRESSION: No acute cardiopulmonary findings.
[2017-10-27] MEDS ORDERED: NOVOLOG100 UNIT/1 SC (09:03)
--- NOTE | 2017-10-27 12:59 | ULTRASOUND REPORT ---
EXAMINATION: US TRIPLEX LOWER EXTREMITY, RIGHT CLINICAL INFORMATION: This is a 57-year-old female with right lower 70 pain. Possible deep vein thrombosis. COMPARISON: None TECHNIQUE: Color-flow triplex imaging with spectral analysis and compression Doppler were performed on the lower extremity. FINDINGS: Respiratory variation, normal compression and augmented flow are noted throughout the lower extremity. The visualized common femoral vein, superficial femoral vein, profunda femoral vein, popliteal vein and midcalf peroneal and posterior tibial venous segments show no evidence of deep venous thrombosis. There is no Kaur's cyst. IMPRESSION: Normal triplex scan without evidence of deep venous thrombosis involving the lower extremity.
[2017-10-27 14:56] VITALS: BP 148/70
== END 2017-10-27 15:52 ==
LOC: ERH 07:45
PROVIDERS: Emergency Medicine
DX: E86.0 Dehydration (principal); R00.2 Palpitations; R07.89 Other chest pain
CPT/HCPCS: 71045; 93005; 93010

== ENCOUNTER 2017-10-29 12:35 | Emergency (ER) | payer OTHER ==
[~2017-10-29 12:35] MED LIST changes: +NOVOLOG100 UNIT/1 SC
--- NOTE | 2017-10-29 14:07 | ED UPPER/LOWER EXTREMITY COMPL ---
History of Present Illness General Chief Complaint: Lower Extremity Problems Stated Complaint: "CAN'T MOVE R LEG" Source: patient, family Exam Limitations: no limitations Vital Signs & Intake/Output Vital Signs & Intake/Output Vital Signs Date Time Temp Pulse Resp B/P B/P Pulse O2 O2 Flow FiO2 Mean Ox Delivery Rate 10/29 1444 97.8 80 18 157/76 99 Room Air 10/29 1239 96.4 97 18 149/85 98 Room Air Room Air Allergies Coded Allergies: insulin aspart (Severe, HIVES 06/09/17) Reconcile Medications Albuterol Sulfate (Proair Hfa) 90 MCG HFA.AER.AD 2 PUF INH PRN RESP. ( Reported) Cholecalciferol (Vitamin D3) (Vitamin D) 2,000 UNIT TABLET 1 TAB PO DAILY SUPPLEMENT (Reported) Duloxetine Hydrochloride (Cymbalta) 20 MG CAPSULE.DR 1 CAP PO DAILY MENTAL HEALTH (Reported) Gabapentin 300 MG CAPSULE 2 CAP PO TID NEUROPATHY (Reported) Insulin Aspart (Novolog) (Unknown Strength) CARTRIDGE (Unknown Dose) SC DAILY DIABETES (Reported) Loratadine (Loradamed) 10 MG TABLET 1 TAB PO DAILY HIVES FROM INSULIN ( Reported) Metformin HCl 1,000 MG TABLET 1 TAB PO BID DIABETES (Reported) Oxycodone HCl/Acetaminophen (Percocet 5-325 MG Tablet) 5 MG-325 MG TABLET 1 TAB PO BID PRN pain Pravastatin Sodium 20 MG TABLET 1 TAB PO DAILY CHOLESTEROL (Reported) Valsartan (Diovan) 80 MG TABLET 1 TAB PO DAILY BP (Reported) Triage Note: TRIAGE: 57 Y/O FEMALE PRESENTS WITH FAMILY C/O RIGHT LEG PAIN SINCE THIS MORNING. UNABLE TO REMAIN PAIN FREE IN TRIAGE. Triage Nurses Notes Reviewed? yes Onset: Abrupt Duration: day(s): (2), constant Timing: recent history Severity: moderate Severity Numbers: 6 Pain/Injury Location: Right: Leg, Knee. Modifying Factors: Worsens With: movement. Associated Symptoms: none HPI: 57-year-old female history of type 1 diabetes, "stiff person syndrome" presents to the ER for evaluation complaining of right anterior knee pain radiating down her kidd since last night which he states while walking up an incline she felt a snap in her leg. She has had pain with range of motion since. She has not taken anything for her symptoms. She reports this feels similar to previous episodes of pain for which she has been seen here multiple times including having negative x-rays and ultrasounds performed of the leg. She states she is scheduled to follow-up with a neurologist in 2 weeks regarding her pain. She denies any swelling numbness tingling fever chills. She did not fall to the ground last night there is no back pain (Dusty Boyd) Past History Travel History Traveled to [place] past 21 day No Medical History Any Pertinent Medical History? see below for history EENT: NONE Cardiovascular: hypertension, hyperlipidemia Respiratory: NONE Gastrointestinal: GERD Hepatic: NONE Renal: NONE Musculoskeletal: falls, HX OSTEOMYELITIS R FOOT BONE SPURT TO L HEEL BONE STIFF MAN SYNDROME, "STIFF PERSON SYNDROME" Psychiatric: NONE Endocrine: diabetes Blood Disorders: NONE Cancer(s): NONE COURTESY DRIVER/Reproductive: NONE Other Medical Hx: Type 1 diabetes mellitus Strube heel spur History of MRSA: No History of VRE: No History of CDIFF: No Tetanus Vaccine: 05/26/13 Surgical History Surgical History: , hysterectomy Psychosocial History Who do you live with Spouse Services at Home None What is your primary language Ugandan Tobacco Use: Never used ETOH Use: denies use Illicit Drug Use: denies illicit drug use Family History Family History, If Any: MOTHER (MOTHER HAD COLON CANCER). FATHER (FATHER HAD ANEURYSM ). Hx Contributory? No (Dusty Boyd) Review of Systems Review of Systems Constitutional: Reports: no symptoms, see HPI. Comments Review of systems: See HPI, All other systems negative. Constitutional, no chills no fever, HEENT: no sore throat no congestion Cardiovascular: No chest pain Skin: no rashes, no change in skin Respiratory: No dyspnea no cough GI: No nausea no vomitinG Muscle skeletal: joint pain, no back pain, no neck pain, Neurologic: , no headache Heme/endocrine: No bruising (Dusty Boyd) Physical Exam Physical Exam General Appearance: well developed/nourished, alert, awake Comments: Well-developed well-nourished patient in no apparent distress. HEENT: Atraumatic, extraocular motion intact Neck: Supple, FROM Back: FROM Cardiovascular: Regular rate and rhythms no murmur Respiratory: No respiratory distress. Patient speaking in full complete sentences. Breath sounds clear to auscultation bilaterally: NO W/R/R Upper Extremities: full range of motion Hip/Pelvis: Atraumatic/Stable. FROM. No pain with pelvic compression Knee: Atraumatic/stable. Limited range of motion secondary to pain no erythema. No joint swelling, no effusion. No laxity. Negative madeline/anterior drawer test. Patient is able to straight leg raise Leg: Atraumatic. Nontender. No edema, 5 out of 5 strength in the lower extremity, normal dorsiflexion of great toe bilaterally, gross sensation is intact, patellar tendon reflex 2+ bilaterally. Ankle/Foot: Atraumatic/stable. Skin intact. FROM. No swelling, no effusion. No laxity on exam Pulses: Normal/equal DP/PT pulses bilaterally. Brisk cap refill Neuro: awake, alert, and oriented to person, place and time. There were no obvious focal neurologic abnormalities. Skin: Warm & dry;No appreciable rash on exposed skin Psych: Mood affect normal, normal memory normal judgment. (Keiko GARCIA,Dusty) Progress Differential Diagnosis: contusion, dislocation, fracture, gout, septic arthritis , sprain, tendon injury Plan of Care: Orders Procedure Date/time Status Durable Medical Equipment 10/29 1421 Active Patient medicated Toradol IM she took a Valium that she had prior to my evaluation x-rays ordered I discussed with the patient at length all of their results. I had an extensive conversation regarding need for close follow up with their primary care physician this week as well as return precautions. Leg immobilizer applied I answered all of their questions, they feel comfortable with the plan and follow- up care. I discussed with the patient/family the medications that they will receive. I gave them signs and symptoms that could indicate an adverse reaction. I have advised them to limit their activities until they can see how they respond to the medication. Diagnostic Imaging: Viewed by Me: Radiology Read. Discussed w/RAD: Radiology Read. Radiology Impression: PATIENT: SUBHA LOZADA PRESENT AGE: 57 PATIENT ACCOUNT NO: [id number] : 58 LOCATION: [facility] ORDERING PHYSICIAN: Dusty GARCIA SERVICE DATE: 10/29/17 EXAM TYPE: RAD - [id number], RIGHT EXAMINATION: XR TIBIA AND FIBULA, RIGHT CLINICAL INFORMATION: [place] snap. Pain. COMPARISON: Right lower extremity radiography . TECHNIQUE: AP and lateral views of the right tibia and fibula were obtained. FINDINGS: No fracture or dislocation. The knee and ankle joints appear congruent. Mild hypertrophic changes about the knee. Plantar calcaneal spurring. IMPRESSION: No acute fracture demonstrated. DICTATED BY: Edwardo Esparza MD DATE/ TIME DICTATED:10/29/171510 GAS TURBINE MECHANIC:CALEB DATE/TIME TRANSCRIBED: 10/29/171510 CONFIDENTIAL, DO NOT COPY WITHOUT APPROPRIATE AUTHORIZATION. < Electronically signed in Other Vendor System> SIGNED BY: Edwardo Esparza MD 10/29/17 1530 (Dusty Boyd) Departure Departure Time of Disposition: 1513 Disposition: HOME OR SELF CARE Condition: Stable Clinical Impression Primary Impression: Leg strain Referrals: Luis Alberto Dumont MD (PCP/Family) Additional Instructions: Follow-up with your primary care physician tomorrow. Leg immobilizer as discussed ice packs as needed. percocet for breakthrough pain. Return with any concerns. Departure Forms: Customer Survey General Discharge Information Prescriptions: Current Visit Scripts Oxycodone HCl/Acetaminophen (Percocet 5-325 MG Tablet) 1 TAB PO BID PRN pain #10 TAB (Dusty Boyd) PA/BULL FIDDLE PLAYER Co-Sign Statement Statement: ED Attending supervision documentation- [] I saw and evaluated the patient. I have also reviewed all the pertinent lab results and diagnostic results. I agree with the findings and the plan of care as documented in the PA's/BULL FIDDLE PLAYER's documentation. [X] I have reviewed the ED Record and agree with the PA's/BULL FIDDLE PLAYER's documentation. [] Additions or exceptions (if any) to the PAs/BULL FIDDLE PLAYER's note and plan are summarized below: [] (Floyd STRINGER,Gregg Ware)
[2017-10-29 14:44] VITALS: BP 157/76
[2017-10-29] MEDS ORDERED: PERCOCET 5-3251 EACH PO (15:15)
--- NOTE | 2017-10-29 15:30 | RADIOLOGY REPORT ---
EXAMINATION: XR TIBIA AND FIBULA, RIGHT CLINICAL INFORMATION: [place] snap. Pain. COMPARISON: Right lower extremity radiography 10/12/2017. TECHNIQUE: AP and lateral views of the right tibia and fibula were obtained. FINDINGS: No fracture or dislocation. The knee and ankle joints appear congruent. Mild hypertrophic changes about the knee. Plantar calcaneal spurring. IMPRESSION: No acute fracture demonstrated.
== END 2017-10-29 15:28 ==
LOC: ERH 12:35
DX: S86.211A Strain of muscle(s) and tendon(s) of anterior muscle group at lower leg level, right leg, initial encounter (principal); X58.XXXA Exposure to other specified factors, initial encounter; Y92.9 Unspecified place or not applicable; Y93.9 Activity, unspecified
CPT/HCPCS: 73590-RT; 96372; J1885